=== PATIENT | female | born 1950 | race Caucasian/White ===

== ENCOUNTER 2024-08-19 17:39 | Emergency (ER) | payer OTHER, MEDICARE ==
[2024-08-19 17:54] VITALS: BP 139/74; PULSE 76; RESP 18; TEMP 98.2; BMI 26.0
[2024-08-19 20:09] LABS: ABSOLUTE IMMATURE GRANULOCYTES 0.02 x10^3/uL (0.0-0.031); BASOPHILS # 0.03 x10^3/uL (0.01-0.08); EOSINOPHIL % 0.5 % (0.7-5.8); EOSINOPHILS # 0.03 x10^3/uL (0.04-0.36); HEMATOCRIT 36.7 % (34.1-44.9); HEMOGLOBIN 12.1 g/dL (11.2-15.7); MEAN PLT VOLUME 9.6 fl (9.4-12.3); MONOCYTE # 0.58 x10^3/uL (0.24-0.86); MONOCYTE % 9.1 % (4.7-12.5); PLATELET COUNT 251 x10^3/uL (182-369); RDW 12.2 % (12.4-16.6)
[2024-08-19 20:20] LABS: INR 1.09 (0.83-1.09)
[2024-08-19 20:22] LABS: ACTIVATED PTT 26.2 SECONDS (25.2-36.5)
[2024-08-19 20:32] LABS: ALBUMIN 3.7 g/dl (3.4-5.0); BLOOD UREA NITROGEN 21.9 mg/dL (7-18); CALCIUM 9.4 mg/dL (8.5-10.1)
[2024-08-19 20:35] LABS: CREATININE 0.7 mg/dL (0.55-1.3)
[2024-08-19 20:36] LABS: PHOSPHOROUS 3.4 mg/dL (2.5-4.9)
[2024-08-19 20:37] LABS: BILIRUBIN,TOTAL 0.5 mg/dL (0.2-1); TOT PROT 7.1 g/dl (6.4-8.2)
== END 2024-08-19 22:34 | disposition home or self-care (01) ==
LOC: JER 17:39
DX: R00.2 Palpitations (principal); R25.1 Tremor, unspecified; R53.83 Other fatigue
CPT/HCPCS: 0241U-QW; 36415; 71046-TC-FY; 80053; 83735; 84100; 84439; 84443; 84484; 85025; 85610; 85730; 93005; 93010; 99285-25